=== PATIENT | female | born 1995 | race Asian ===

== ENCOUNTER 2017-01-25 19:22 | Emergency (ER) | payer SELFPAY ==
[2017-01-25 23:03] LABS: BASOPHIL % 0.4 % (0-2); PLATELET COUNT 385 x10^3mcL (130-400)
[2017-01-25 23:23] LABS: CARBON DIOXIDE 28.5 mmol/L (21-32); CHLORIDE SERUM 101 mmol/L (98-107); CREATININE SERUM 0.8 mg/dL (0.6-1.0); GFR1 > 60 mL/min; GLUCOSE SERUM 100 mg/dL (74-106); SODIUM SERUM 141 mmol/L (136-145)
[2017-01-25 23:27] LABS: ALBUMIN 5.6 g/dL (3.4-5.0); ALKALINE PHOSPHATASE 66 U/L (46-116); ALT/SGPT 34 U/L (14-59); AMYLASE 88 U/L (25-115); AST/SGOT 28 U/L (15-37); BILIRUBIN TOTAL 1.2 mg/dL (0.20-1.00); LIPASE 60 IU/L (73-393); TOTAL PROTEIN, SERUM 9.7 g/dL (6.4-8.2)
[2017-01-25 23:54] LABS: UA SPECIFIC GRAVITY 1.025 (1.005-1.035); microscopic required? YES; urine erythrocyte NEGATIVE (NEGATIVE)
[2017-01-26 00:47] VITALS: BP 119/78
== END 2017-01-26 00:47 | disposition home or self-care (01) ==
LOC: ED 19:22
PROVIDERS: Emergency Medicine
DX: R11.10 Vomiting, unspecified (principal)
CPT/HCPCS: J2405; J7030; Q0092